=== PATIENT | female | born 2005 | race Caucasian/White ===

== ENCOUNTER 2024-08-08 01:35 | Emergency (ER) | payer MEDICAID ==
[~2024-08-08] VITALS: Ht 162.6 cm; Wt 45.5 kg
[2024-08-08 01:40] VITALS: BP 138/102; PULSE 64; RESP 16; TEMP 98.3; O2SAT 99
== END 2024-08-08 02:06 | disposition home or self-care (01) ==
LOC: ER 01:36
DX: Z04.1 Encounter for examination and observation following transport accident (principal); V89.2XXA Person injured in unspecified motor-vehicle accident, traffic, initial encounter; Y93.89 Activity, other specified; Y92.410 Unspecified street and highway as the place of occurrence of the external cause; Y99.8 Other external cause status
CPT/HCPCS: 99283